=== PATIENT | female | born 1950 | race Caucasian/White ===

== ENCOUNTER → 2020-06-04 07:03 | Outpatient (CLI) | payer MEDICARE, SELFPAY ==
[2020-06-04 19:44] LABS: SARS-CoV-2 RNA PCR Negative
== END ==
PROVIDERS: Visit Provider Family Medicine
DX: R68.89 Other general symptoms and signs (principal); Z20.822 Contact with and (suspected) exposure to COVID-19
CPT/HCPCS: C9803; U0003; U0005

== ENCOUNTER → 2020-06-06 13:47 | Outpatient (CLI) | payer MEDICARE, SELFPAY ==
--- NOTE | ~2020-06-06 | US_ITS ---
EXAMINATION: US pelvic complete w TV DATE: 06/06/2020 14:06 INDICATION: Postmenopausal bleeding Comparison:No prior studies for comparison. TECHNIQUE: Multiple transabdominal and endovaginal sonographic images of the pelvis performed. FINDINGS: The uterus measures 4.6 x 2.2 x 3.5 cm. The endometrial complex measures 1.5 mm. The ovaries are not visualized, likely atrophic. No adnexal masses or fluid collections. There is no free fluid in the pelvis. There are no abnormal masses seen on either side. IMPRESSION: 1. Unremarkable pelvic ultrasound. Reviewed, dictated and finalized at location A.
== END ==
PROVIDERS: PCP Family Medicine; Visit Provider Physician Assistant
DX: N95.0 Postmenopausal bleeding (principal)
CPT/HCPCS: 76830; 76856

== ENCOUNTER → 2020-07-01 16:08 | Outpatient (CLI) | payer MEDICARE, SELFPAY ==
--- NOTE | ~2020-07-01 | MM_ITS ---
EXAMINATION: MM screening lata BI w brendan HISTORY: Screening mammogram TECHNIQUE: Craniocaudal and mediolateral oblique 3-D tomosynthesis images were obtained and synthetic 2-D images were generated. Bilateral rotated lateral craniocaudal views. CAD analysis was submitted and interpreted. COMPARISON: No prior mammogram is available for comparison at this institution. BREAST PARENCHYMAL COMPOSITION: The breasts are heterogeneously dense, which may obscure small masses . FINDINGS: There is a small asymmetric opacity in the very posterior central left breast on craniocaud al view. Diagnostic left mammogram is recommended, with ultrasound if required. Otherwise there is no evidence of suspicious mass, calcification, or architectural distortion to sugg est malignancy in either breast. There has been no other suspicious interval change. IMPRESSION: 1. 4 mm asymmetric opacity in the posterior central left breast on craniocaudal view 2. Diagnostic left mammogram and if necessary left breast ultrasound examination are recommended. BI-RADS Category 0: Incomplete: Needs additional imaging evaluation. Reviewed, dictated and finalized at location A. IMPRESSION: 1. 4 mm asymmetric opacity in the posterior central left breast on craniocaudal view 2. Diagnostic left mammogram and if necessary left breast ultrasound examinatio n are recommended. BI-RADS Category 0: Incomplete: Needs additional imaging evaluation.
== END ==
PROVIDERS: Visit Provider Family Medicine
DX: Z12.31 Encounter for screening mammogram for malignant neoplasm of breast (principal); R92.8 Other abnormal and inconclusive findings on diagnostic imaging of breast
CPT/HCPCS: 77063; 77067

== ENCOUNTER → 2020-07-28 09:23 | Outpatient (CLI) | payer MEDICARE, SELFPAY ==
--- NOTE | ~2020-07-28 | MM_ITS ---
EXAMINATION: MM diagnostic mammo unilat LT HISTORY: Approximately 4 mm asymmetric mammographic opacity in posterior mid left breast on 07/01/2020 screening mammogram TECHNIQUE: Additional 3-D tomosynthesis images of the left breast were performed and synthetic 2-D im ages were generated. CAD analysis was submitted and interpreted. COMPARISON: 07/01/2020, 12/19/2018, 12/18/2017bilateral digital screening mammogram examinations FINDINGS: There is a subtle small opacity at the posterior central left breast which appears essentia lly stable or diminished in size since 12/18/2017. IMPRESSION: 1. Benign finding 2. Routine annual mammographic screening is recommended. BI-RADS Category 2: Benign finding(s). Reviewed, dictated and finalized at location A.
== END ==
PROVIDERS: PCP Family Medicine; Visit Provider Family Medicine
DX: R92.8 Other abnormal and inconclusive findings on diagnostic imaging of breast (principal)
CPT/HCPCS: 77065

== ENCOUNTER → 2020-10-07 10:00 | Outpatient (CLI) | payer MEDICARE, SELFPAY ==
--- NOTE | ~2020-10-07 | DEXA_ITS ---
Bone Density Report Name: Nicky Cross Age: 70 Sex: Female Ethnicity: White Date of : 1950 Indication: postmenopausal; screening for osteoporosis; Referring Provider: Vladimir Ag Study: Bone densitometry was performed. Exam Date: October 07, 2020 Accession number: [id number] Bone Density: Region BMD T-score Z-score Classification AP Spine (L3, L4) 1.070 -0.3 1.8 Normal Femoral Neck (Left) 0.641 -1.9 -0.2 Osteopenia Total Hip (Left) 0.749 -1.6 -0.2 Osteopenia Femoral Neck (Right) 0.498 -3.2 -1.5 Osteoporosis Total Hip (Right) 0.644 -2.4 -1.0 Osteopenia Total Hip Mean 0.697 -2.0 -0.6 Osteopenia World Health Organization criteria for BMD impression classify patients as: Normal (T-score at or above -1.0), Osteopenia (T-score between -1.0 and -2.5), or Osteoporosis (T-score at or below -2.5). 10-year Fracture Risk: FRAX not reported because: Some T-score for Spine Total or Hip Total or Femoral Neck at or below -2.5 Treated for osteoporosis Clinical Information Provided by Patient: Is being treated for osteoporosis Has used the following medications: Prolia (i.e. denosumab), Calcium Patient maximum height was 66 Menopause Age: 58 Drinks caffeinated beverages Onset of menses at age 19 Number of children 2 Impression: The patient has osteoporosis, based on the Right Femoral Neck T-score. Discussion: It is important to ask patients whether they are taking their medications and to encourage continued and appropriate compliance with their osteoporosis therapies to reduce fracture risk. It is also important to review their risk factors and encourage appropriate calcium and vitamin D intakes, exercise, fall prevention and other lifestyle measures. Follow-Up: Consider a repeat BMD and Vertebral Fracture Assessment (VFA) exam in 2 years or sooner if medically necessary, to reassess this patient's status. Reported by: [facility] on 10/07/2020 10:17:00 AM. Reviewed, dictated and finalized at location A. [place]
== END ==
PROVIDERS: PCP Family Medicine; Visit Provider Physician Assistant
DX: Z78.0 Asymptomatic menopausal state (principal); M85.852 Other specified disorders of bone density and structure, left thigh; M85.851 Other specified disorders of bone density and structure, right thigh; M81.0 Age-related osteoporosis without current pathological fracture
CPT/HCPCS: 77080

== ENCOUNTER → 2021-04-26 09:30 | Outpatient (CLI) | payer MEDICARE, OTHER, SELFPAY ==
--- NOTE | ~2021-04-26 | MR_ITS ---
EXAMINATION: MR lumbar spine wo con EXAM DATE: 04/26/2021 10:02 INDICATION: M54.50 - Low back pain, unspecified . Right hip pain. TECHNIQUE: Multi-sequential, multiplanar MR images of the lumbar spine were obtained without contrast . Sagittal T1, T2, T2 fat saturation images. Axial T2 weighted images. There is moderate to severe disc disease at L1-2 and L5-S1, mild to moderate at L4-5. There is 4 mm retrolisthesis L1 on L2, 5 m m anterolisthesis L4 on L5 without spondylolysis, 4 mm retrolisthesis L5 on S1. The conus medullaris terminates at the L1/2 level and has normal signal intensity and morphology. FINDINGS: Level by level evaluation: T12-L1: There is a moderate diffuse disc bulge, superimposed right central extrusion, inferior migrat ion Facet arthropathy: Mild. Neural foraminal stenosis: Mild right. Central canal stenosis: Mild. L1-L2: There is a moderate diffuse disc bulge. Facet arthropathy: Mild to moderate. Neural foraminal stenosis: Moderate left, mild to moderate right. Central canal stenosis: Mild. L2-L3: There is a mild diffuse disc bulge. Facet arthropathy: Moderate to severe right, moderate left. Ligamentum flavum enlargement. Neural foraminal stenosis: Mild to moderate right, mild left. Central canal stenosis: Mild. L3-L4: There is a mild to moderate diffuse disc bulge. Facet arthropathy: Moderate to severe . Ligamentum flavum enlargement. Neural foraminal stenosis: Mild to moderate bilateral. Central canal stenosis: Moderate. L4-L5: There is a mild to moderate diffuse disc bulge. Facet arthropathy: Severe . Ligamentum flavum enlargement. Neural foraminal stenosis: Mild to moderate right, mild left. Central canal stenosis: Moderate. L5-S1: There is a moderate diffuse disc bulge. Facet arthropathy: Moderate. Neural foraminal stenosis: Moderate bilateral. Central canal stenosis: Mild to moderate. IMPRESSION: Moderate to severe lumbar spondylosis as detailed above. Reviewed, dictated and finalized at location A. [employer]
== END ==
PROVIDERS: Visit Provider Physician Assistant
DX: M47.896 Other spondylosis, lumbar region (principal)
CPT/HCPCS: 72148

== ENCOUNTER → 2021-10-05 11:21 | Outpatient (CLI) | payer MEDICARE, OTHER, SELFPAY ==
--- NOTE | ~2021-10-05 | MM_ITS ---
EXAMINATION: MM screening lata BI w brendan HISTORY: Screening mammogram TECHNIQUE: Craniocaudal and mediolateral oblique 3-D tomosynthesis images were obtained and synthetic 2-D images were generated. CAD analysis was submitted and interpreted. COMPARISON: 07/28/2020 diagnostic left mammogram 07/01/2020, 12/19/2018 bilateral screening mammogram examinations BREAST PARENCHYMAL COMPOSITION: The breasts are heterogeneously dense, which may obscure small masses . FINDINGS: There is asymmetry in the upper anterior margin of the left breast on MLO view without defi nite correlate on the CC projection. This may be summation shadow, but diagnostic left mammogram is r ecommended, with ultrasound if required. Otherwise there is no evidence of suspicious mass, calcification, or architectural distortion to sugg est malignancy in either breast. There has been no other suspicious interval change. IMPRESSION: 1. Focal asymmetry in anterior upper fibroglandular margin on MLO view without definite correlate on CC projection 2. Diagnostic left mammogram is recommended, with ultrasound if required BI-RADS Category 0: Incomplete: Needs additional imaging evaluation. Reviewed, dictated and finalized at location A.
== END ==
PROVIDERS: PCP Physician Assistant; Visit Provider Family Medicine
DX: Z12.31 Encounter for screening mammogram for malignant neoplasm of breast (principal); R92.8 Other abnormal and inconclusive findings on diagnostic imaging of breast
CPT/HCPCS: 77063; 77067

== ENCOUNTER → 2021-10-18 07:59 | Outpatient (CLI) | payer MEDICARE, OTHER, SELFPAY ==
--- NOTE | ~2021-10-18 | MM_ITS ---
EXAMINATION: MM diagnostic lata LT w brendan HISTORY: Left breast asymmetry on screening mammogram TECHNIQUE: Additional 3-D tomosynthesis images of the left breast were performed and synthetic 2-D im ages were generated. CAD analysis was submitted and interpreted. COMPARISON: 10/05/2021, 07/28/2020, 07/01/2020, 12/19/2018, 12/18/2017 FINDINGS: There is a return to baseline fibroglandular appearance with spot compression of the left b reast in the area questioned on screening mammogram. IMPRESSION: 1. No mammographic evidence of malignancy. 2. Recommend routine screening mammography in one year. BI-RADS Category 1: Negative Reviewed, dictated and finalized at location A.
== END ==
PROVIDERS: PCP Physician Assistant; Visit Provider Physician Assistant
DX: R92.8 Other abnormal and inconclusive findings on diagnostic imaging of breast (principal)
CPT/HCPCS: 77061; 77065; G0279

== ENCOUNTER → 2022-05-21 10:52 | Outpatient (CLI) | payer MEDICARE, OTHER, SELFPAY ==
--- NOTE | ~2022-05-21 | XR_ITS ---
EXAMINATION: XR chest 2V DATE: 05/21/2022 11:02 INDICATION: Cough and congestion TECHNIQUE: frontal and lateral views of the chest were obtained. COMPARISON: None FINDINGS: The lungs are clear with no focal airspace opacities, pulmonary edema, pleural effusion or pneumothor ax. The cardiomediastinal silhouette is normal. Minimal lower thoracic levocurvature with mild to mod erate spondylosis. IMPRESSION: 1. No acute cardiopulmonary disease. Reviewed, dictated and finalized at location A.
== END ==
PROVIDERS: PCP Internal Medicine; Visit Provider Nurse Practitioner
DX: R05.9 Cough, unspecified (principal)
CPT/HCPCS: 71046

== ENCOUNTER → 2023-01-23 14:49 | Outpatient (CLI) | payer MEDICARE, OTHER, SELFPAY ==
--- NOTE | ~2023-01-23 | MM_ITS ---
EXAMINATION: MM screening lata BI w brendan HISTORY: Screening mammogram, family history of breast cancer in her sister. TECHNIQUE: Craniocaudal and mediolateral oblique 3-D tomosynthesis images were obtained and synthetic 2-D images were generated. CAD analysis was submitted and interpreted. COMPARISON: 10/18/2021, 10/05/2021, 07/28/2020, 07/01/2020 BREAST PARENCHYMAL COMPOSITION: There are scattered areas of fibroglandular density. FINDINGS: No suspicious mass, calcification, or architectural distortion are identified in either butch ast to suggest malignancy. There has been no suspicious interval change. IMPRESSION: 1. No mammographic evidence of malignancy. 2. Recommend routine screening mammography in one year. BI-RADS Category 1: Negative Reviewed, dictated and finalized at location A. [employer]
== END ==
PROVIDERS: PCP Internal Medicine; Visit Provider Internal Medicine
DX: Z12.31 Encounter for screening mammogram for malignant neoplasm of breast (principal)
CPT/HCPCS: 77063; 77067

== ENCOUNTER → 2023-04-09 08:43 | Outpatient (CLI) | payer MEDICARE, OTHER, SELFPAY ==
--- NOTE | ~2023-04-09 | DEXA_ITS ---
Bone Density Report Name: SE ROSADO Age: 73 Sex: Female Ethnicity: White Date of : 1950 Indication: osteopenia; monitoring treatment; height loss; postmenopausal Referring Provider: Holley Loaiza Study: Bone densitometry was performed. Exam Date: April 09, 2023 Accession number: [id number] Bone Density: Region BMD T-score Z-score Classification AP Spine (L3, L4) 1.171 0.6 2.9 Normal Femoral Neck (Left) 0.641 -1.9 0.0 Osteopenia Total Hip (Left) 0.754 -1.5 0.0 Osteopenia Femoral Neck (Right) 0.519 -3.0 -1.1 Osteoporosis Total Hip (Right) 0.658 -2.3 -0.8 Osteopenia Total Hip Mean 0.706 -1.9 -0.4 Osteopenia World Health Organization criteria for BMD impression classify patients as: Normal (T-score at or above -1.0), Osteopenia (T-score between -1.0 and -2.5), or Osteoporosis (T-score at or below -2.5). 10-year Fracture Risk: FRAX not reported because: Some T-score for Spine Total or Hip Total or Femoral Neck at or below -2.5 Treated for osteoporosis Previous Exams: Region Exam Age BMD T-score BMD Change BMD Change Date g/cm2 vs Baseline vs Previous AP Spine(L3, L4) 04/09/2023 73 1.171 0.6 0.101* 0.101* 10/07/2020 70 1.070 -0.3 Total Hip(Left) 04/09/2023 73 0.754 -1.5 0.004 0.004 10/07/2020 70 0.749 -1.6 Total Hip(Right) 04/09/2023 73 0.658 -2.3 0.014 0.014 10/07/2020 70 0.644 -2.4 *Denotes significance at 95% confidence level, LSC for AP Spine = 0.022 g/cm2, LSC for Total Hip = 0.027 g/cm2 Clinical Information Provided by Patient: Is being treated for osteoporosis Has used the following medications: Prolia (i.e. denosumab), Vitamin D, Calcium Patient maximum height was 66.5 Menopause Age: 58 Drinks caffeinated beverages Onset of menses at age 19 Number of children 2 Impression: The patient has osteoporosis, based on the Right Femoral Neck T-score. No significant bone loss was observed. Discussion: PATIENT UNDER TREATMENT WITH NO SIGNIFICANT BMD LOSS SINCE LAST EXAM. In an untreated patient, BMD typically declines with age. A lack of decline or gain is usually a sign that treatment is efficacious and fracture risk is reduced. It is important to ask patients whether they are taking their medications and to encourage continued and appropriate compliance with their osteoporosis therapies to reduce fracture risk. It is also important to review their risk fact
== END ==
PROVIDERS: PCP Internal Medicine; Visit Provider Nurse Practitioner
DX: Z78.0 Asymptomatic menopausal state (principal); M85.89 Other specified disorders of bone density and structure, multiple sites; M81.0 Age-related osteoporosis without current pathological fracture
CPT/HCPCS: 77080

== ENCOUNTER 2023-05-13 15:26 | Emergency (ER) | payer MEDICARE, OTHER, SELFPAY ==
[2023-05-13] VITALS (11 sets, daily range): BP systolic 104–147; BP diastolic 51–94; PULSE 76–94; RESP 14–22; TEMP 36.6; O2SAT 94–100
--- NOTE | ~2023-05-13 | CT_ITS ---
EXAMINATION: CT abdomen pelvis w con INDICATION: Lower abdominal pain TECHNIQUE: Computed tomographic images of the abdomen and pelvis were obtained after the administrati on of 100 cc of Omnipaque 350 intravenous contrast. The dose-length product (DLP) was 221.61 mGy-cm. Automated exposure control and iterative reconstruction technique were employed. COMPARISON: None available FINDINGS: The lung bases are clear. The heart size is normal. There is a small sliding hiatal hernia. The liver, spleen, pancreas, gallbladder, and adrenal glands are normal. Cysts of the kidneys measur e up to 8 mm on the left. No pathologically enlarged abdominal or pelvic lymph nodes are identified. No free intraperitoneal gas or evidence of bowel obstruction. There is colonic diverticulosis. There is inflammatory change near the rectum. There appears to be wall thickening of the rectum. The append ix is normal. There is severe lumbar spondylosis. IMPRESSION: 1. Wall thickening of the rectum with adjacent inflammatory change. Finding could reflect acute diver ticulitis however underlying neoplasm is not excluded. Recommend correlation with colonoscopy history . Reviewed, dictated and finalized at location F. IMPRESSION: 1. Wall thickening of the rectum with adjacent inflammatory change. Finding cou ld reflect acute diverticulitis however underlying neoplasm is not excluded. Re commend correlation with colonoscopy history.
--- NOTE | 2023-05-13 17:06 | ED.GIBLEED ---
HPI - GI Bleed General Chief complaint: GI Bleed <Adrian Hernández PA-C - Last Filed: 05/13/23 17:14> Stated complaint: abd pain/gi bleeding <Adrian Hernández PA-C - Last Filed: 05/13/23 17:14> Time Seen by Provider: 05/13/23 17:06 <Adrian Hernández PA-C - Last Filed: 05/13/23 17:14> Focused HPI: This is a 73-year-old female with PMH of HTN who presents to the ED with chief complaint of 3 days of abdominal pain. Reports that she was initially having epigastric pain a couple of weeks ago and was taking Prilosec with decent relief. Reports that since then she is starting to have some more generalized abdominal cramping, worse in the lower abdomen. Today she notes several episodes of bright red rectal bleeding. She also reports some mucousy stools that were blood tinged. Endorses nausea but no vomiting. Denies fevers, chills, diarrhea, recent illness, urinary symptoms, back pain, flank pain. Reports history of diverticulitis many years ago but no recent episodes. Colonoscopy was normal 8 years ago. GENERAL: Well-appearing, well-nourished, and in no acute distress. HEAD: Normocephalic, atraumatic. CHEST: Clear to auscultation. No respiratory distress. HEART: Regular rate and rhythm. NEURO: Alert and oriented x3. ABD: Mild right lower quadrant, left lower quadrant suprapubic tenderness present. Abdomen is soft, nondistended. Negative flank tenderness. Patient screened in triage and initial orders placed. Additional care and disposition to be based upon diagnostic testing and treatment. <Adrian Hernández PA-C - Last Filed: 05/13/23 17:14> Source: patient <Adrian Hernández PA-C - Last Filed: 05/13/23 17:14> Mode of arrival: ambulatory <Adrian Hernández PA-C - Last Filed: 05/13/23 17:14> Limitations: no limitations <Adrian Hernández PA-C - Last Filed: 05/13/23 17:14> History of Present Illness HPI Narrative: 73-year-old female present to the ED for evaluation of lower abdominal pain. Patient reports that she was having some abdominal cramping last night and then began to have frequent bowel movements. Patient states that was not diarrhea but it was formed stool. Patient states after multiple bowel months she did p.m. developed some blood in her stool. Patient states that she was also passing some mucus that had some streaks of blood. Patient does complain of current lower abdominal pain. <Lisandro Hernandez MD - Last Filed: 05/13/23 22:41> Related Data Home medications: Home Medications Medication Instructions Recorded Confirmed Calcium 600 + D(3) See Rx Instructions .Route .COMPLEX 10/02/19 04/26/23 vitamin B complex (B 1 tablet PO DAILY 11/14/21 04/26/23 Complex-Vitamin B12 tablet) fiber tablet PO 03/22/23 03/22/23 multivitamin (Multiple Vitamins 1 tablet PO DAILY 03/22/23 04/26/23 tablet) <Adrian Hernández PA-C - Last Filed: 05/13/23 17:14> Allergies/Adverse reactions: Allergies Allergy/AdvReac Type Severity Reaction Status Date / Time house dust Allergy Unknown Sneezing Verified 04/26/23 10:12 Sulfa (Sulfonamide Allergy Unknown Nausea Verified 04/26/23 10:12 Antibiotics) <Adrian Hernández PA-C - Last Filed: 05/13/23 17:14> Review of Systems Review of Systems: All systems reviewed & are unremarkable except as noted in HPI and below <Lisandro Hernandez MD - Last Filed: 05/13/23 22:41> [facility] Past Medical History Medical History: Medical History Cleft palate with cleft lip <Adrian Hernández PA-C - Last Filed: 05/13/23 17:14> Surgical History Surgical History: Surgical History (Reviewed 03/22/23 @ 10:37 by Mariah Campoverde, [facility]) H/O arthroscopic knee surgery H/O cleft lip repair with palate repair also H/O rhinoplasty <Adrian Hernández PA-C - Last Filed: 05/13/23 17:14> Family History Family History: Family History (Reviewed 03/22/23 @ 10:37 by Mariah Campoverde, [facility]) Father Dec
[2023-05-13] MEDS: ONDANSETRON INJ 4 MG/2 ML VIAL IV PUSH (17:15)
[2023-05-13 17:26] LABS: Basophils Absolute Auto 0.1 K/mm3 (0.0-0.1); Basophils Percent Auto 0.4 % (0.2-1.2); Eosinophils Absolute Auto 0.4 K/mm3 (0-0.3); Eosinophils Percent Auto 2.4 % (0-4.4); Hematocrit 42.9 % (37.0-47.0); Hemoglobin 13.8 g/dL (12.0-15.0); Immature Granulocyte Absolute 0.06 K/mm3 (0.00-0.031); Immature Granulocyte Percent A 0.4 % (0-0.5); Lymphocytes Absolute Auto 1.86 K/mm3 (0.9-3.2); Lymphocytes Percent Auto 11.9 % (18.3-44.2); Mean Corpuscular HGB Conc 32.2 g/dl (32-36); Mean Corpuscular Hemoglobin 29.6 pg (26-34); Mean Corpuscular Volume 91.9 fl (80-100); Mean Platelet Volume 10.7 fl (7.4-10.4); Monocytes Absolute Auto 0.9 K/mm3 (0.1-0.6); Monocytes Percent Auto 5.7 % (2.6-8.5); Neutrophils Absolute Auto 12.4 K/mm3 (1.3-6.7); Neutrophils Percent Auto 79.2 % (45.5-73.1); Platelet Count Result 308 k/mm3 (150-375); Red Blood Count 4.67 M/mm3 (4.2-5.4); Red Cell Distribution Width 13.2 % (11.5-14.5); White Blood Count 15.7 K/mm3 (4.5-10.0)
[2023-05-13 17:34] LABS: Alanine Aminotransferase 18 U/L (6-35); Albumin Level 4.8 g/dL (3.5-5.1); Alkaline Phosphatase 56 U/L (38-126); Anion Gap 6 mmol/L (8-16); Aspartate Amino Transferase 27 U/L (14-36); Bilirubin,Total 0.8 mg/dL (0.2-1.3); Blood Urea Nitrogen 21 mg/dL (7-17); Calcium 9.8 mg/dL (8.4-10.2); Carbon Dioxide 29 mmol/L (22-30); Chloride 102 mmol/L (98-107); Estimated CRCL calculation 50 ml/min; Estimated Glomerular Filt Rate > 60; Glucose 97 mg/dL (65-110); Lipase 159 U/L (23-300); Sodium 137 mmol/L (137-145)
[2023-05-13 17:37] LABS: Partial Thromboplastin Time 29.5 Seconds (22.3-36.8)
[2023-05-13 18:22] LABS: Bacteria Urine None Seen /hpf; Non Pathogenic Casts 0-2; RBC Urine 0-2 /hpf (0-2); Squamous Epithelial Cell Urine None Seen /hpf (Few)
[2023-05-13] MEDS: HYDROmorphone HCL INJ (*CRX) 1 MG/ML SYR 0.5 MG IV PUSH (18:46)
[2023-05-13] MEDS: SODIUM CHLORIDE 0.9% IV 1,000 ML 999 ML IV CONT (18:47)
[2023-05-13 18:50] LABS: Appearance Urine Clear (Clear); Color Urine Yellow (Yellow)
[2023-05-13 18:51] LABS: Glucose Urine UA Negative (Negative); Protein Urine Negative (Negative)
[2023-05-13 18:52] LABS: Ketones Urine 1+ mg/dL (Negative)
[2023-05-13 18:53] LABS: Bilirubin Urine 1+ (Negative); Blood Urine Negative (Negative); Leukocyte Esterase Ur 1+ LEU/UL (Negative); Nitrate Urine Negative (Negative); Urobilinogen Urine 0.2 mg/dL (<2.0)
[2023-05-13 18:55] LABS: Add Urine Microscopic? YES
--- NOTE | 2023-05-13 19:27 | PC.NURSE ---
Assumed care of pt. Bedside report from YUNIOR Castañeda. Pt laying per stretcher. Using jacket as pillow. Offered pt pillow. Denies any additional needs. Updated pt on pending testing.
[2023-05-13] MEDS: AMOXICILLIN/CLAVULANATE K 875-125 MG TAB 1 TABLET PO (20:17)
== END 2023-05-13 20:27 | disposition home or self-care (01) ==
PROVIDERS: Physician Assistant; Emergency Provider Emergency Medicine; PCP Internal Medicine
DX: K57.92 Diverticulitis of intestine, part unspecified, without perforation or abscess without bleeding (principal)
CPT/HCPCS: 36415; 74177; 80053; 81001; 83605; 83690; 85025; 85610; 85730; 87086; 87088; 96361; 96374; 96375; 99284; A9270; J1170; J2405; J7030; Q9967

== ENCOUNTER 2023-06-25 07:00 | Outpatient (NON) | payer MEDICARE, OTHER, SELFPAY | END 2023-06-25 07:01 | disposition home or self-care (01) | LOC: ANHLAB 06-26 09:04 | PROVIDERS: PCP Internal Medicine; Visit Provider Internal Medicine | DX: K21.9 Gastro-esophageal reflux disease without esophagitis (principal) | CPT/HCPCS: 88305 ==

== ENCOUNTER 2023-06-25 08:57 | Day surgery (SDC) | payer MEDICARE, OTHER, SELFPAY ==
[2023-06-04 10:47] VITALS: BMI 23.8
[2023-06-10 09:00] VITALS: BMI 23.5
--- NOTE | 2023-06-25 09:50 | PM.HPGS ---
History of Present Illness History of Present Illness Consent: Risks, benefits, and alternatives have been discussed and questions answered. Patient agrees to proceed with procedure. Chief complaint: Diverticulitis w/perforation or abscess, Gerd Narrative: Nicky Cross is a 73 year old female referred for colon cancer screening. Her last colonoscopy was 9 years ago at which time she had 1 polyp removed. 6 weeks ago she seen in the emergency room because of abdominal pain of several days duration. She had Also epigastric pain. CT scan showed some suggestion of diverticulitis with wall thickening of the rectum. She was treated with antibiotics. Review of Systems Review of Systems: All systems reviewed & are unremarkable except as noted in HPI and below PMFSH Past Medical History Medical History Cleft palate with cleft lip Surgical History Surgical History H/O arthroscopic knee surgery H/O cleft lip repair with palate repair also H/O rhinoplasty Family History Family History Father Hypertension Family history of elevated blood lipids Family history of primary malignant neoplasm of liver Family history of malignant neoplasm of bone Sibling Hypertension Other Family history of osteoporosis Social History Social History Social History: Caffeine-soda Smoking status: Never smoker Second hand tobacco smoke exposure: No Alcohol intake: current Drinks per week: 7 Alcohol use details: wine daily Substance use: never Substance use type: does not use Lack of Transportation: No Lack of Food: Never True Current Housing: I Have Housing Concerned About Future Housing: No Difficulty Paying Gas/Electric Bills: No Difficulty Paying for Meds: No Currently Unemployed: No Education: Associate Degree Difficulty w/ Childcare or Family Care: No Living arrangements: with family Gender identity (if verbalized by the patient): Female Spiritual care concerns: No Meds Home Medications and Allergies Home Medications Medication Instructions Recorded Confirmed Type Calcium 600 + D(3) See Rx Instructions .Route .COMPLEX 10/02/19 06/25/23 History vitamin B complex (B 1 tablet PO DAILY 11/14/21 06/25/23 History Complex-Vitamin B12 tablet) albuterol sulfate 90 mcg/actuation 2 puff inhalation Q4-6H PRN 05/15/22 06/25/23 Rx aerosol inhaler shortness of breath or wheezing #8.5 grams denosumab 60 mg/mL subcutaneous 60 mg subcut [id number] #1 mL 05/21/22 06/25/23 Rx syringe (Prolia) lorazepam 1 mg tablet 1.5 mg PO DAILY PRN anxiety #45 03/06/23 06/25/23 Rx tabs amlodipine 2.5 mg tablet 2.5 mg PO DAILY #90 tabs 03/13/23 06/25/23 Rx hydrochlorothiazide 12.5 mg tablet 12.5 mg PO DAILY #90 tabs 03/20/23 06/25/23 Rx fiber 1 tablet PO DAILY 03/22/23 06/25/23 History multivitamin (Multiple Vitamins 1 tablet PO DAILY 03/22/23 06/25/23 History tablet) cetirizine 10 mg tablet (Zyrtec) 10 mg PO DAILY PRN Allergy Symptoms 06/03/23 06/25/23 History cyclobenzaprine 10 mg tablet 10 mg PO TID PRN muscle spasms 06/10/23 06/25/23 History ibuprofen 800 mg tablet 800 mg PO TID PRN Pain 06/10/23 06/25/23 History Allergies Allergy/AdvReac Type Severity Reaction Status Date / Time Sulfa (Sulfonamide AdvReac Unknown Nausea Verified 06/25/23 09:44 Antibiotics) Exam Resp: Auscultation: clear to auscultation bilaterally Cardio: Rate: regular rate Rhythm: regular rhythm GI: GI Palp: Yes Soft to palpation and No Tenderness to palpation present (GI) Assessment and Plan Assessment and plan (1) Diverticulitis: Code(s): K57.92 - Diverticulitis of intestine, part unspecified, without perforation or abscess without bleeding Status: Inactive
[2023-06-25 09:57] VITALS: BP 114/87; PULSE 80; RESP 18; TEMP 37.6; O2SAT 100; BMI 23.4
[2023-06-25] MEDS: LACTATED RINGERS 1,000 ML 150 ML IV CONT (10:15)
--- NOTE | 2023-06-25 10:22 | WPDANESEPPF ---
Anes - Initial Pre Proc Eval Procedure: Operation Date: 06/25/23 11:00 Proposed Procedures s Esophagogastroduodenoscopy - Manny Rai MD p Diagnostic Colonoscopy - Manny Rai MD Date/Time: 06/25/23 10:22 Surgeon: Manny Rai MD Pre Op Diagnosis: Diverticulitis w/perforation or abscess, Gerd Patient Data Age: 73 Gender: F Height: 1.68 m Weight: 65.8 kg Last Vital Signs Temp 37.6 C 06/25/23 09:57 Pulse 80 06/25/23 09:57 Resp 18 06/25/23 09:57 BP 114/87 06/25/23 09:57 Pulse Ox 100 06/25/23 09:57 O2 Del Method Room Air 06/25/23 09:57 Allergies Allergy/AdvReac Type Severity Reaction Status Date / Time Sulfa (Sulfonamide AdvReac Unknown Nausea Verified 06/25/23 09:44 Antibiotics) Home Medications Medication Instructions Recorded Confirmed Type Calcium 600 + D(3) See Rx Instructions .Route .COMPLEX 10/02/19 06/25/23 History vitamin B complex (B 1 tablet PO DAILY 11/14/21 06/25/23 History Complex-Vitamin B12 tablet) albuterol sulfate 90 mcg/actuation 2 puff inhalation Q4-6H PRN 05/15/22 06/25/23 Rx aerosol inhaler shortness of breath or wheezing #8.5 grams denosumab 60 mg/mL subcutaneous 60 mg subcut [id number] #1 mL 05/21/22 06/25/23 Rx syringe (Prolia) lorazepam 1 mg tablet 1.5 mg PO DAILY PRN anxiety #45 03/06/23 06/25/23 Rx tabs amlodipine 2.5 mg tablet 2.5 mg PO DAILY #90 tabs 03/13/23 06/25/23 Rx hydrochlorothiazide 12.5 mg tablet 12.5 mg PO DAILY #90 tabs 03/20/23 06/25/23 Rx fiber 1 tablet PO DAILY 03/22/23 06/25/23 History multivitamin (Multiple Vitamins 1 tablet PO DAILY 03/22/23 06/25/23 History tablet) cetirizine 10 mg tablet (Zyrtec) 10 mg PO DAILY PRN Allergy Symptoms 06/03/23 06/25/23 History cyclobenzaprine 10 mg tablet 10 mg PO TID PRN muscle spasms 06/10/23 06/25/23 History ibuprofen 800 mg tablet 800 mg PO TID PRN Pain 06/10/23 06/25/23 History Patient hx anesthesia problems: none Family hx anesthesia problems: none Results Review: All pre-operative results and documents have been reviewed as part of the pre-operative evaluation. [facility] Past Medical History Medical History (Updated 06/25/23 @ 10:23 by Shiv James MD) Cleft palate with cleft lip Hypertension Surgical History Surgical History H/O arthroscopic knee surgery H/O cleft lip repair with palate repair also H/O rhinoplasty Family History Family History Father Hypertension Family history of elevated blood lipids Family history of primary malignant neoplasm of liver Family history of malignant neoplasm of bone Sibling Hypertension Other Family history of osteoporosis Social History Social History Social History: Caffeine-soda Smoking status: Never smoker Second hand tobacco smoke exposure: No Alcohol intake: current Drinks per week: 7 Alcohol use details: wine daily Substance use: never Substance use type: does not use Lack of Transportation: No Lack of Food: Never True Current Housing: I Have Housing Concerned About Future Housing: No Difficulty Paying Gas/Electric Bills: No Difficulty Paying for Meds: No Currently Unemployed: No Education: Associate Degree Difficulty w/ Childcare or Family Care: No Living arrangements: with family Gender identity (if verbalized by the patient): Female Spiritual care concerns: No Anes - Eval Final PreProcedure Day of Procedure 06/25/23 10:22 Patient weight: normal Heart: regular rate and rhythm Lungs: clear to auscultation Airway: Mallampati scale class II and other (cleft palate repair) Neurological: alert and oriented Last oral intake: >/= 8 hours ASA classification: II Emergent: no Anesthetic plan: proceed Anesthesia type and monitoring: general GIVS and standard monitoring R
[2023-06-25 11:13] VITALS: BP 92/58; PULSE 66; RESP 12; O2SAT 98
[2023-06-25 11:23] VITALS: BP 102/71; PULSE 76; RESP 14; O2SAT 100
[2023-06-25 11:33] VITALS: BP 104/89; PULSE 71; RESP 16; O2SAT 100
--- NOTE | 2023-06-25 11:41 | WPDANESPN ---
Anes - Prog Note Post-Op Date/Time: 06/25/23 11:41 Cardiovascular status: normal Respiratory status: normal Airway patency: baseline Mental status: baseline Post-Op hydration status: normal Vital Signs: Last Vital Signs Temp 37.6 C 06/25/23 09:57 Pulse 76 06/25/23 11:23 Resp 14 06/25/23 11:23 BP 102/71 06/25/23 11:23 Pulse Ox 100 06/25/23 11:23 O2 Del Method Room Air 06/25/23 11:23 Pain Score (VAS): 0/10 I/O: Intake & Output 06/24/23 06/25/23 06/25/23 23:59 07:59 15:59 Intake Total 300 Balance 300 Patient Feedback: Patient satisfied with anesthetic care.
== END 2023-06-25 12:00 | disposition home or self-care (01) ==
PROVIDERS: PCP Internal Medicine; Visit Provider Internal Medicine Gastroenterology
PROC: 0DJ08ZZ Inspection of Upper Intestinal Tract, Via Natural or Artificial Opening Endoscopic (ICD-10-PCS; CPT 43235; principal; 2023-06-25 11:00)
PROC: 0DJD8ZZ Inspection of Lower Intestinal Tract, Via Natural or Artificial Opening Endoscopic (ICD-10-PCS; CPT 45378; 2023-06-25 11:00)
DX: R19.4 Change in bowel habit (principal); K57.30 Diverticulosis of large intestine without perforation or abscess without bleeding; K21.00 Gastro-esophageal reflux disease with esophagitis, without bleeding; K29.70 Gastritis, unspecified, without bleeding
CPT/HCPCS: 45378; 43239

== ENCOUNTER 2023-11-10 10:08 | Emergency (ER) | payer MEDICARE, OTHER, SELFPAY ==
--- NOTE | 2023-11-10 10:13 | ED.EYEPROB ---
HPI - Eye Problem General Chief complaint: Eye Problems Stated complaint: L EYE PAIN Time Seen by Provider: 11/10/23 10:20 Source: patient and RN notes reviewed Mode of arrival: ambulatory Limitations: no limitations History of Present Illness HPI Narrative: 73-year-old female presents with concern for left eye pain and redness. Reports she woke up this morning with the symptoms. She denies known injury or trauma. Denies crustiness, her eye was not crusted shut. She does report watery drainage of blurry vision. chief complaint: eye pain Related Data Home Medications Medication Instructions Recorded Confirmed Calcium 600 + D(3) See Rx Instructions .Route .COMPLEX 10/02/19 11/10/23 vitamin B complex (B 1 tablet PO DAILY 11/14/21 11/10/23 Complex-Vitamin B12 tablet) fiber 1 tablet PO DAILY 03/22/23 11/10/23 multivitamin (Multiple Vitamins 1 tablet PO DAILY 03/22/23 11/10/23 tablet) cetirizine 10 mg tablet (Zyrtec) 10 mg PO DAILY PRN Allergy Symptoms 06/03/23 11/10/23 cyclobenzaprine 10 mg tablet 10 mg PO TID PRN muscle spasms 06/10/23 11/10/23 ibuprofen 800 mg tablet 800 mg PO TID PRN Pain 06/10/23 11/10/23 Allergies Allergy/AdvReac Type Severity Reaction Status Date / Time Sulfa (Sulfonamide AdvReac Unknown Nausea Verified 11/10/23 10:14 Antibiotics) Review of Systems Review of Systems: CONSTITUTIONAL: Denies malaise, chills, sweats, or fever. EYES: Denies visual changes. Reports left redness, pain, watery discharge. ENT: Denies rhinorrhea, congestion, sinus pain, otalgia or sore throat. SKIN: Denies rash or itching. NEUROLOGIC: Denies numbness, weakness, or headache. PSYCHIATRIC: Denies anxiety or depression. All systems reviewed & are unremarkable except as noted in HPI and below PMFSH Past Medical History Medical History (Updated 11/10/23 @ 10:27 by Christie aMyes NP) Cleft palate with cleft lip Hypertension Surgical History Surgical History H/O arthroscopic knee surgery H/O cleft lip repair with palate repair also H/O rhinoplasty Family History Family History Father Hypertension Family history of elevated blood lipids Family history of primary malignant neoplasm of liver Family history of malignant neoplasm of bone Sibling Hypertension Other Family history of osteoporosis Social History Social History Social History: Caffeine-soda Smoking status: Never smoker Second hand tobacco smoke exposure: No Alcohol intake: current Drinks per week: 7 Alcohol use details: wine daily Substance use: never Substance use type: does not use Lack of Transportation: No Lack of Food: Never True Current Housing: I Have Housing Concerned About Future Housing: No Difficulty Paying Gas/Electric Bills: No Difficulty Paying for Meds: No Currently Unemployed: No Education: Associate Degree Difficulty w/ Childcare or Family Care: No Living arrangements: with family Gender identity (if verbalized by the patient): Female Spiritual care concerns: No Comments At time of signature, agree with nursing past medical, surgical, social and family history. There is no relevant family history pertinent to the presenting complaint Exam Narrative: GENERAL: Well-appearing, well-nourished, and in no acute distress. HEAD: Normocephalic, atraumatic. EYES: PERRLA, right sclera clear, and EOMI. No nystagmus. Left sclera injected with corneal abrasion noted on was lamp exam, see note. Upper and lower eyelid unremarkable, no periorbital edema noted ENT: Nares clear, turbinates pink, no rhinorrhea or epistaxis. Mucous membranes moist. TM pearly steel with sharp light reflex bilaterally; no tragal tenderness. NECK: Supple. CHEST: No respiratory distress. Speaks in full sentences. HEART: Regular ra
[2023-11-10 10:20] VITALS: BP 147/86; PULSE 71; RESP 16; TEMP 36.9; O2SAT 99
== END 2023-11-10 10:33 | disposition home or self-care (01) ==
PROVIDERS: Emergency Provider Nurse Practitioner; PCP Internal Medicine
DX: S05.02XA Injury of conjunctiva and corneal abrasion without foreign body, left eye, initial encounter (principal); X58.XXXA Exposure to other specified factors, initial encounter; I10 Essential (primary) hypertension
CPT/HCPCS: 99213; A9270; G0463

== ENCOUNTER 2024-04-29 13:08 | Outpatient (CLI) | payer MEDICARE, OTHER, SELFPAY ==
--- NOTE | ~2024-04-29 | MM_ITS ---
EXAMINATION: MM screening lata BI w brendan HISTORY: Screening mammogram, family history of breast cancer in her daughter and sister. TECHNIQUE: Craniocaudal and mediolateral oblique 3-D tomosynthesis images were obtained and synthetic 2-D images were generated. CAD analysis was submitted and interpreted. COMPARISON: 01/23/2023, 10/18/2021, 10/05/2021 BREAST PARENCHYMAL COMPOSITION:Dense: The breasts are heterogeneously dense, which may obscure small masses. FINDINGS: No suspicious mass, calcification, or architectural distortion are identified in either butch ast to suggest malignancy. There has been no suspicious interval change. IMPRESSION: No mammographic evidence of malignancy. Recommend routine screening mammography in one year. BI-RADS Category 1: Negative Reviewed, dictated and finalized at location .
--- OUTSIDE RECORDS SUMMARY | 2024-04-29 14:36 | XMS_ITS | Encounter Summary ---
Author Organization [facility] Address [address] [place] [address] Care Team Providers Care Systems Eng Name Role Phone Tenzin Gonzalez MD Primary Care Provider [phone] Encounter Details Date Type Department Care Team (Late st Contact Info) Description 10/16/2005 Outpatient Historical [facility] Kids Plastic Surgery [address] [facility] [address] Giuliano Stout MD NO ADDRESS ON FILE Social History Tobacco Use Types Packs/Day Years Used Date Smoking Tobacco: Never Assessed Comments Unknown Sex and Gender Information Value Date Recorded Sex Assigned at Not on file Legal Sex Female 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
--- OUTSIDE RECORDS SUMMARY | 2024-04-29 14:36 | XMS_ITS | Encounter Summary ---
Author Organization [facility] Address [address] [place] [address] Care Team Providers Care Book Retailer Name Role Phone Tenzin Gonzalez MD Primary Care Provider [phone] Encounter Details Date Type Department Care Team (Latest Contact Info) Description 10/31/2005 Outpatient Historical [facility] BED Giuliano Stout MD NO ADDRESS ON FILE Unilateral Cleft Palate with Cleft Lip, Incomplete (Primary Dx) Social History Tobacco Use Types Packs/Day Years Used Date Smoking Tobacco: Never Assessed Comments Unknown Sex and Gender Information Value Date Recorded Sex Assigned at Not on file Legal Sex Female 4:30 AM NYLON WINDER Gender Identity Not on file Sexual Orientation Not on file documented as of this encounter Plan of Treatment Not on file documented as of this encounter Procedures Procedure Name Priority Date/Time Associated Diagnosis Comments HEMOGLOBIN AND HEMATOCRIT Routine 10/31/2005 1:41 PM CDT POC , URINE Routine 10/31/2005 1:41 PM CDT BASIC METABOLIC PANEL Routine 10/31/2005 1:41 PM CDT documented in this encounter Results * POC , URINE (10/31/2005 1:41 PM CDT) HCG QUAL URINE Negative Negative INTER FACE SYSTEM SPECIFIC GRAVITY UA 1.020 1.001 - 1.035 INTERFACE SYSTEM 10/31/2005 1:41 PM CDT Giuliano Stout MD POINT OF CARE TESTING Final R esult Performing Organization Address [facility] Phone Number INTERFACE SYSTEM Refer to clinic/hospital department * BASIC METABOLIC PANEL (10/31/2005 1:41 PM CDT) GLUCOSE 85 65 - 99 mg/dL INTERFACE SYSTEM CREATININE 0.7 0.4 - 1.2 mg/dL INTERFACE SYSTEM CALCIUM 8.9 8.4 - 10.2 mg/dL INTERFACE SYSTEM BUN 13 6 - 20 mg/dL INTERFACE SYSTEM SODIUM 139 135 - 145 mmol/L INTERFACE SYSTEM POTASSIUM 4.0 3.5 - 4.9 mmol/L INTERFACE SYSTEM CHLORIDE 103 96 - 108 mmol/L INTERFACE SYSTEM CO2 27 22 - 30 mmol/L INTERFACE SYSTEM 10/31/2005 1:41 PM CDT Giuliano Stout MD CHEMISTRY ORDERABLES Final Re sult Performing Organization Address [facility] Phone Number INTERFACE SYSTEM Refer to clinic/hospital department * HEMOGLOBIN AND HEMATOCRIT (10/31/2005 1:41 PM CDT) HEMOGLOBIN 13.4 11.8 - 14.8 g/dL INTERFACE SYSTEM HEMATOCRIT 39.9 35.5 - 44.0 % INTERFACE SYSTEM 10/31/2005 1:41 PM CDT us Giuliano Stout MD HEMATOLOGY ORDERABLES Final R esult Performing Organization Address [facility] Phone Number INTERFACE SYSTEM Refer to clinic/hospital department documented in this encounter Visit Diagnoses Diagnosis Unilateral cleft palate with cleft lip, incomplete- Primary documented in this encounter Care Teams Book Retailer Relationship Specialty Start Date End Date Tenzin Gonzalez MD [address] [place] [id number] PCP - General Family Practice 06/21/21 documented as of this encounter
--- OUTSIDE RECORDS SUMMARY | 2024-04-29 14:36 | XMS_ITS | Clinical Summary ---
Author Organization [facility] Address [address] [place] [address] Phone Care Team Providers Care Shale Miner Blasting Name Role Phone Tenzin Gonzalez MD Primary Care Provider [phone] Allergies No known active allergies Medications ibuprofen (ADVIL ORAL) Take 800 mg by mouth 2 times daily. Active hydroCHLOROthiaz iggy (MICROZIDE) 12.5 mg capsule Take 12.5 mg by mouth daily. Active calcium carbonate (CALCIUM 600 ORAL) Take 1,000 mg by mouth daily. Active ergocalciferol, vitamin D2, (VITAMIN D ORAL) Take by mouth daily. Active cyanocobalamin 1,000 mcg Tablet Take 1,000 mcg by mouth daily. Active MELOXICAM ORAL Take by mouth daily. Active Active Problems No known active problems Family History Medical History Relation Name Comments Hypertension Brother Other Brother Spinal Stenosis Cancer Father Heart Disease Father High Cholesterol Father Hypertension Father Other Father Smoker Spinal S tenosis Other Mother Smoker Cancer Other Aunt Cancer Sister High Cholesterol Sister Hypertension Sister Other Sister Smoker Relation Name Status Comments Brother Father Mother Other Aunt Alive Sister Social History Tobacco Use Types Packs/Day Years Used Date Smoking Tobacco: Never Smokeless Tobacco: Never Alcohol Use Standard Drinks/Week Comments Yes 0 (1 standard drink = 0.6 oz pur e alcohol) Comments Unknown Sex and Gender Information Value Date Recorded Sex Assigned at Not on file Legal Sex Female 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 EXAMINER Gender Identity Not on file Sexual Orientation Not on file Last Filed Vital Signs Vital Sign Reading Time Taken Comments Blood Pressure 119/81 07/19/2021 9:52 AM CDT Pulse 79 07/19/2021 9:52 AM CDT Temperature 35.9 C (96.6 F) 07/19/2021 9:52 AM CDT Respiratory Rate - - Oxygen Saturation - - Inhaled Oxygen Concentration - - Weight 65 kg (143 lb 3.2 oz) 07/19/2021 9:52 AM CDT Height 167 cm (5' 5.75 ) 07/19/2021 9:52 AM CDT Body Mass Index 23.29 07/19/2021 9:52 AM CDT Plan of Treatment Health Maintenance Due Date Last Done Comments DTAP/TDAP/TD VACCINES (1 - Tdap) 1971 BREAST CANCER SCREENING 1992 COLORECTAL SCREENING 1997 Colorectal Cancer Screening 1997 FIT-DNA Q 3 years 1997 FIT/FOBT Q 1 year 1997 Flex Sig/CT Colonography Q 5 years 1997 PNEUMOCOCCAL VACCINE 50+ YEARS (1 of 1 - PCV) 03/10/19 03 ZOSTER VACCINE (1 of 2) 2002 OSTEOPOROSIS SCREENING 2017 INFLUENZA VACCINE (#1) 2023 RSV VACCINE (60+ or ) (1 - 1-dose 75+ series) 2027 Insurance [place] [facility] [place] [id number] Care Teams Shale Miner Blasting Relationship Specialty Start Date End Date Tenzin Gonzalez MD [address] [place] [address] PCP - General Family Practice 06/21/21
--- OUTSIDE RECORDS SUMMARY | 2024-04-29 14:36 | XMS_ITS | Encounter Summary ---
Author Organization [facility] Address [address] [place] [address] Care Team Providers Care Electronic Warfare Technical Name Role Phone Tenzin Gonzalez MD Primary Care Provider [phone] Encounter Details Date Type Department Care Team (Late st Contact Info) Description 05/11/2005 Outpatient Historical [facility] Kids Plastic Surgery [address] [address] Giuliano Stout MD NO ADDRESS ON FILE Social History Tobacco Use Types Packs/Day Years Used Date Smoking Tobacco: Never Assessed Comments Unknown Sex and Gender Information Value Date Recorded Sex Assigned at Not on file Legal Sex Female 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
--- OUTSIDE RECORDS SUMMARY | 2024-04-29 14:36 | XMS_ITS | Encounter Summary ---
Author Organization [facility] Address [address] [place] [address] Care Team Providers Care Photography And Prints Curator Name Role Phone Tenzin Gonzalez MD Primary Care Provider [phone] Encounter Details Date Type Department Care Team (Late st Contact Info) Description 12/21/2005 Outpatient Historical [facility] Kids Plastic Surgery [address] [address] Giuliano Stout MD NO ADDRESS ON FILE Social History Tobacco Use Types Packs/Day Years Used Date Smoking Tobacco: Never Assessed Comments Unknown Sex and Gender Information Value Date Recorded Sex Assigned at Not on file Legal Sex Female 4:30 AM CLINICAL TECHNICIAN Gender Identity Not on file Sexual Orientation Not on file documented as of this encounter Plan of Treatment Not on file documented as of this encounter Visit Diagnoses Not on filedocumented in this encounter Care Teams Photography And Prints Curator Relationship Specialty Start Date End Date Tenzin Gonzalez MD [address] [place] [address] PCP - General Family Practice 06/21/21 documented as of this encounter
--- OUTSIDE RECORDS SUMMARY | 2024-04-29 14:36 | XMS_ITS | Encounter Summary ---
Author Organization [facility] Address [address] [place] [address] Care Team Providers Care Beverage Distiller Name Role Phone Tenzin Gonzalez MD Primary Care Provider [phone] Encounter Details Date Type Department Care Team (Late st Contact Info) Description 11/14/2005 Outpatient Historical [facility] Kids Plastic Surgery [address] [facility] [address] [address] Giuliano Stout MD NO ADDRESS ON FILE Social History Tobacco Use Types Packs/Day Years Used Date Smoking Tobacco: Never Assessed Comments Unknown Sex and Gender Information Value Date Recorded Sex Assigned at Not on file Legal Sex Female 4:30 AM PATIENT CASE MANAGER Gender Identity Not on file Sexual Orientation Not on file documented as of this encounter Plan of Treatment Not on file documented as of this encounter Visit Diagnoses Not on filedocumented in this encounter Care Teams Beverage Distiller Relationship Specialty Start Date End Date Tenzin Gonzalez MD [address] [place] [address] PCP - General Family Practice 06/21/21 documented as of this encounter
--- OUTSIDE RECORDS SUMMARY | 2024-04-29 14:36 | XMS_ITS | Encounter Summary ---
Author Organization [facility] Address [address] [place] [address] Care Team Providers Care Skidder Runner Name Role Phone Tenzin Gonzalez MD Primary Care Provider [phone] Encounter Details Date Type Department Care Team (Late st Contact Info) Description 11/05/2005 Outpatient Historical [facility] Kids Plastic Surgery [address] [facility] [address] [address] Giuliano Stout MD NO ADDRESS ON FILE Social History Tobacco Use Types Packs/Day Years Used Date Smoking Tobacco: Never Assessed Comments Unknown Sex and Gender Information Value Date Recorded Sex Assigned at Not on file Legal Sex Female 4:30 AM PRODUCTION ENGINEER TRACK Gender Identity Not on file Sexual Orientation Not on file documented as of this encounter Plan of Treatment Not on file documented as of this encounter Visit Diagnoses Not on filedocumented in this encounter Care Teams Skidder Runner Relationship Specialty Start Date End Date Tenzin Gonzalez MD [address] [place] [address] PCP - General Family Practice 06/21/21 documented as of this encounter
--- OUTSIDE RECORDS SUMMARY | 2024-04-29 14:36 | XMS_ITS | Encounter Summary ---
Author Organization [employer] Address [address] [place] [address] Care Team Providers Care Stitch Welder Name Role Phone Tenzin Gonzalez MD Primary Care Provider [phone] Encounter Details Date Type Department Care Team (Late st Contact Info) Description 10/31/2005 Outpatient Historical [facility] ([facility] [address] [place] [address] Glynn Cooper MD [address] [facility] [address] [place] [address] Social History Tobacco Use Types Packs/Day Years Used Date Smoking Tobacco: Never Assessed Comments Unknown Sex and Gender Information Value Date Recorded Sex Assigned at Not on file Legal Sex Female 4:30 AM EVIDENCE CUSTODIAN Gender Identity Not on file Sexual Orientation Not on file documented as of this encounter Plan of Treatment Not on file documented as of this encounter Visit Diagnoses Not on filedocumented in this encounter Care Teams Stitch Welder Relationship Specialty Start Date End Date Tenzin Gonzalez MD [address] [place] [address] PCP - General Family Practice 06/21/21 documented as of this encounter
--- OUTSIDE RECORDS SUMMARY | 2024-04-29 14:36 | XMS_ITS | Encounter Summary ---
Author Organization [facility] Address [address] [place] [address] Care Team Providers Care Property Appraiser Name Role Phone Tenzin Gonzalez MD Primary Care Provider [phone] Encounter Details Date Type Department Care Team (Latest Contact Info) Description 11/14/2005 Outpatient Historical [facility] Giuliano Stout MD NO ADDRESS ON FILE Other Specified Aftercare Following Surgery (Primary Dx) Social History Tobacco Use Types Packs/Day Years Used Date Smoking Tobacco: Never Assessed Comments Unknown Sex and Gender Information Value Date Recorded Sex Assigned at Not on file Legal Sex Female 4:30 AM HOME EXTENSION AGENT Gender Identity Not on file Sexual Orientation Not on file documented as of this encounter Plan of Treatment Not on file documented as of this encounter Visit Diagnoses Diagnosis Other specified aftercare following surgery- Primary documented in this encounter Care Teams Property Appraiser Relationship Specialty Start Date End Date Tenzin Gonzalez MD [address] [place] [address] PCP - General Family Practice 06/21/21 documented as of this encounter
--- OUTSIDE RECORDS SUMMARY | 2024-04-29 14:36 | XMS_ITS | Encounter Summary ---
Author Organization [facility] Address [address] [place] [address] Care Team Providers Care Display Screen Fabricator Name Role Phone Tenzin Gonzalez MD Primary Care Provider [phone] Encounter Details Date Type Department Care Team (Late st Contact Info) Description 10/31/2005 Outpatient Historical [facility] Kids Plastic Surgery [address] [address] Giuliano Stout MD NO ADDRESS ON FILE Social History Tobacco Use Types Packs/Day Years Used Date Smoking Tobacco: Never Assessed Comments Unknown Sex and Gender Information Value Date Recorded Sex Assigned at Not on file Legal Sex Female 4:30 AM NUCLEAR WEAPONS CUSTODIAN Gender Identity Not on file Sexual Orientation Not on file documented as of this encounter Plan of Treatment Not on file documented as of this encounter Visit Diagnoses Not on filedocumented in this encounter Care Teams Display Screen Fabricator Relationship Specialty Start Date End Date Tenzin Gonzalez MD [address] [place] [address] PCP - General Family Practice 06/21/21 documented as of this encounter
== END 2024-04-29 13:09 | disposition home or self-care (01) ==
PROVIDERS: PCP Internal Medicine; Visit Provider Internal Medicine
DX: Z12.31 Encounter for screening mammogram for malignant neoplasm of breast (principal)
CPT/HCPCS: 77063; 77067

== ENCOUNTER 2024-08-18 10:50 | Outpatient (CLI) | payer MEDICARE, OTHER, SELFPAY ==
--- OUTSIDE RECORDS SUMMARY | 2024-08-18 11:04 | XMS_ITS | Encounter Summary ---
Author Organization [employer] [facility] Address 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 Gender Identity Not on file Sexual Orientation [...] TESTING Final R esult Performing Organization Address [facility] Phone Number INTERFACE SYSTEM Refer to [...] ORDERABLES Final Re sult Performing Organization Address [facility] Phone Number INTERFACE SYSTEM Refer to clinic/hospital department * HEMOGLOBIN AND HEMATOCRIT (10/31/2005 1:41 PM CDT) HEMOGLOBIN 13.4 11.8 - 14.8 g/dL INTERFACE SYSTEM HEMATOCRIT 39.9 35.5 - 44.0 % INTERFACE SYSTEM 10/31/2005 1:41 PM CDT us Giuliano Stout MD HEMATOLOGY ORDERABLES Final R esult Performing Organization Address [facility] Phone Number INTERFACE SYSTEM Refer to clinic/hospital department documented in this encounter Visit Diagnoses Diagnosis Unilateral cleft palate with cleft lip, incomplete- Primary documented in this encounter Care Teams Flight Operations Dispatch Clerk Relationship Specialty Start Date End Date Tenzin Gonzalez MD [address] [place] [id number] PCP - General Family Practice 06/21/21 documented as of this encounter
--- OUTSIDE RECORDS SUMMARY | 2024-08-18 11:04 | XMS_ITS | Clinical Summary ---
Author Organization [facility] Address [address] [place] [address] Phone Care Team Providers Care Supervisor Home Economics Name Role Phone Tenzin Gonzalez MD Primary Care Provider [phone] Allergies No known active allergies Medications ibuprofen [...] on file Legal Sex Female 4:[address] APPRAISER Gender Identity Not on file Sexual Orientation [...] 9:52 AM CDT Height 167 cm (5' 5.75) 07/19/2021 9:52 AM CDT Body Mass Index [...] (1 - 1-dose 75+ series) 2027 [facility] [id number] Care Teams Supervisor Home Economics Relationship Specialty Start Date End Date Tenzin Gonzalez MD [address] [place] [place] [address] PCP - General Family Practice 06/21/21
--- OUTSIDE RECORDS SUMMARY | 2024-08-18 11:04 | XMS_ITS | Encounter Summary ---
Author Organization [facility] Address [address] [place] [address] Care Team Providers Care Head Rose Grower Name Role Phone Tenzin Gonzalez MD Primary Care Provider [phone] Encounter Details Date Type Department Care Team (Late st Contact Info) Description 10/16/2005 Outpatient Historical [facility] Kids Pl[facility] Surgery [address] [facility] [address] [id number] Giuliano Stout MD NO ADDRESS ON FILE Social History Tobacco Use Types Packs/Day Years Used Date Smoking Tobacco: Never Assessed Comments Unknown Sex and Gender Information Value Date Recorded Sex Assigned at Not on file 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
--- OUTSIDE RECORDS SUMMARY | 2024-08-18 11:04 | XMS_ITS | Encounter Summary ---
Author Organization [facility] Address [address] [place] [address] Care Team Providers Care Fur Dry Cleaner Hand Name Role Phone Tenzin Gonzalez MD Primary Care Provider [phone] Encounter Details Date Type Department Care Team (Late st Contact Info) Description 11/05/2005 Outpatient Historical [facility] Kids Plastic Surgery [address] [facility] [address] [address] Giuliano Stout MD NO ADDRESS ON FILE Social History Tobacco Use Types Packs/Day Years Used Date Smoking Tobacco: Never Assessed Comments Unknown Sex and Gender Information Value Date Recorded Sex Assigned at Not on file Legal 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
--- OUTSIDE RECORDS SUMMARY | 2024-08-18 11:04 | XMS_ITS | Encounter Summary ---
Author Organization [facility] Address [address] [place] [address] Care Team Providers Care Director Museum Or Zoo Name Role Phone Tenzin Gonzalez MD Primary Care Provider [phone] Encounter Details Date Type Department Care Team (Late st Contact Info) Description 12/21/2005 Outpatient Historical [facility] Kids Plastic Surgery [address] [facility] [address] [address] Giuliano Stout MD NO ADDRESS ON FILE Social History Tobacco Use Types Packs/Day Years Used Date Smoking Tobacco: Never Assessed Comments Unknown Sex and Gender Information Value Date Recorded Sex Assigned at Not on file 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
--- OUTSIDE RECORDS SUMMARY | 2024-08-18 11:04 | XMS_ITS | Encounter Summary ---
Author Organization [facility] Address 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
--- OUTSIDE RECORDS SUMMARY | 2024-08-18 11:04 | XMS_ITS | Encounter Summary ---
Author Organization [employer] Address [address] [place] [address] Care Team Providers Care Muffler Installer Name Role Phone Tenzin Gonzalez MD Primary Care Provider [phone] Encounter Details Date Type Department Care Team (Late st Contact Info) Description 10/31/2005 Outpatient Historical [facility] Support [facility] ([facility] Card[facility]) [address] 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
--- OUTSIDE RECORDS SUMMARY | 2024-08-18 11:04 | XMS_ITS | Encounter Summary ---
Author Organization [facility] Address [address] [place] [address] Care Team Providers Care Medical Review Specialist Name Role Phone Tenzin Gonzalez MD Primary Care Provider [phone] Encounter Details Date Type Department Care Team (Late st Contact Info) Description 05/11/2005 Outpatient Historical [facility] Kids Plastic Surgery [address] [facility] [address] [address] Giuliano Stout MD NO ADDRESS ON FILE Social History Tobacco Use Types Packs/Day Years Used Date Smoking Tobacco: Never Assessed Comments Unknown Sex and Gender Information Value Date Recorded Sex Assigned at Not on file Legal 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
--- OUTSIDE RECORDS SUMMARY | 2024-08-18 11:04 | XMS_ITS | Encounter Summary ---
Author Organization [facility] Address [address] [place] [address] Care Team Providers Care Transportation Maintenance Supervisor Name Role Phone Tenzin Gonzalez MD Primary Care Provider [phone] Encounter Details Date Type Department Care Team (Late st Contact Info) Description 10/31/2005 Outpatient Historical [facility] Kids Plastic Surgery [address] [facility] [address] [address] Giuliano Stout MD NO ADDRESS ON FILE Social History Tobacco Use Types Packs/Day Years Used Date Smoking Tobacco: Never Assessed Comments Unknown Sex and Gender Information Value Date Recorded Sex Assigned at Not on file 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
--- OUTSIDE RECORDS SUMMARY | 2024-08-18 11:04 | XMS_ITS | Encounter Summary ---
Author Organization [facility] Address [address] [place] [address] Care Team Providers Care Letterpress Setter Name Role Phone Tenzin Gonzalez MD Primary Care Provider [phone] Encounter Details Date Type Department Care Team (Late st Contact Info) Description 11/14/2005 Outpatient Historical [facility] Kids Plastic Surgery [address] [facility] [address] [address] Giuliano Stout MD NO ADDRESS ON FILE Social History Tobacco Use Types Packs/Day Years Used Date Smoking Tobacco: Never Assessed Comments Unknown Sex and Gender Information Value Date Recorded Sex Assigned at Not on file Legal Sex Female 4:30 AM DATA MANAGER Gender Identity Not on file Sexual Orientation Not on file documented as of this encounter Plan of Treatment Not on file documented as of this encounter Visit Diagnoses Not on filedocumented in this encounter Care Teams Letterpress Setter Relationship Specialty Start Date End Date Tenzin Gonzalez MD [address] [place] [address] PCP - General Family Practice 06/21/21 documented as of this encounter
[2024-08-18 15:20] LABS: Alanine Aminotransferase 15 U/L (6-35); Albumin Level 4.6 g/dL (3.5-5.1); Alkaline Phosphatase 44 U/L (38-126); Anion Gap 9 mmol/L (4-12); Aspartate Amino Transferase 68 U/L (14-36); Bilirubin,Total 0.5 mg/dL (0.2-1.3); Blood Urea Nitrogen 33 mg/dL (7-17); Calcium 10.4 mg/dL (8.4-10.2); Carbon Dioxide 29 mmol/L (22-30); Chloride 102 mmol/L (98-107); Cholesterol 244 mg/dL (0-200); Estimated Glomerular Filt Rate > 60; Glucose 94 mg/dL (65-110); HDL Direct 53 mg/dL; Potassium 4.0 mmol/L (3.4-5.0); Sodium 140 mmol/L (137-145); Total Protein 8.1 g/dL (6.3-8.2); Triglycerides 195 mg/dL (<150)
[2024-08-18 15:50] LABS: Thyroid Stimulating Hormone 1.180 uIU/mL (0.465-4.680)
[2024-08-18 16:00] LABS: Parathyroid Intact 16.1 pg/mL (14.5-75.2)
[2024-08-18 16:04] LABS: Hematocrit 42.6 % (37.0-47.0); Hemoglobin 13.5 g/dL (12.0-15.0); Immature Granulocyte Percent A 0.3 % (0-0.5); Lymphocytes Absolute Auto 2.07 K/mm3 (0.9-3.2); Mean Corpuscular HGB Conc 31.7 g/dl (32-36); Mean Corpuscular Hemoglobin 29.4 pg (26-34); Mean Corpuscular Volume 92.8 fl (80-100); Nucleated Red Blood Cells Absolute Auto 0.000 K/mm3 (0.0-0.012); Nucleated Red Blood Cells Perc 0.0 % (0.0-0.2); Platelet Count Result 328 k/mm3 (150-375); Red Blood Count 4.59 M/mm3 (4.2-5.4); White Blood Count 7.6 K/mm3 (4.5-10.0)
== END 2024-08-18 10:51 | disposition home or self-care (01) ==
LOC: ANHGOSHLAB 10:51
PROVIDERS: PCP Internal Medicine; Visit Provider Internal Medicine
DX: E78.2 Mixed hyperlipidemia (principal); M81.0 Age-related osteoporosis without current pathological fracture; E55.9 Vitamin D deficiency, unspecified; M54.2 Cervicalgia
CPT/HCPCS: 36415; 80053; 80061; 82172; 82306; 83970; 84443; 85025